=== PATIENT | female | born 1980 | race Caucasian/White ===

== ENCOUNTER 2022-05-06 11:14 | Outpatient (CLI) | payer OTHER, SELFPAY ==
[2022-05-06 11:47] LABS: Basophils Absolute Auto 0.1 K/mm3 (0.0-0.1); Basophils Percent Auto 0.7 % (0.2-1.2); Eosinophils Absolute Auto 0.4 K/mm3 (0-0.3); Eosinophils Percent Auto 4.2 % (0-4.4); Hematocrit 44.2 % (37.0-47.0); Hemoglobin 14.6 g/dL (12.0-15.0); Immature Granulocyte Absolute 0.03 K/mm3 (0.00-0.031); Immature Granulocyte Percent A 0.3 % (0-0.5); Lymphocytes Absolute Auto 2.58 K/mm3 (0.9-3.2); Lymphocytes Percent Auto 29.9 % (18.3-44.2); Mean Corpuscular Hemoglobin 30.3 pg (26-34); Mean Corpuscular Volume 91.7 fl (80-100); Mean Platelet Volume 9.9 fl (7.4-10.4); Monocytes Absolute Auto 0.7 K/mm3 (0.1-0.6); Neutrophils Absolute Auto 4.9 K/mm3 (1.3-6.7); Neutrophils Percent Auto 56.9 % (45.5-73.1); Platelet Count Result 311 k/mm3 (150-375); Red Blood Count 4.82 M/mm3 (4.2-5.4); Red Cell Distribution Width 13.2 % (11.5-14.5); White Blood Count 8.6 K/mm3 (4.5-10.0)
[2022-05-06 11:58] LABS: Alanine Aminotransferase 23 U/L (6-35); Alkaline Phosphatase 72 U/L (38-126); Anion Gap 8 mmol/L (8-16); Aspartate Amino Transferase 24 U/L (14-36); Bilirubin,Total 0.4 mg/dL (0.2-1.3); Blood Urea Nitrogen 10 mg/dL (7-17); Calcium 8.8 mg/dL (8.4-10.2); Carbon Dioxide 26 mmol/L (22-30); Chloride 104 mmol/L (98-107); Cholesterol 237 mg/dL (0-200); Estimated Glomerular Filt Rate > 60; Glucose 94 mg/dL (65-110); HDL Direct 36 mg/dL; Hemoglobin A1C 5.8 % (<5.7); Potassium 3.8 mmol/L (3.4-5.0); Sodium 138 mmol/L (137-145); Triglycerides 189 mg/dL (<150)
[2022-05-06 12:09] LABS: LDL Cholesterol Direct 142 mg/dL
[2022-05-06 12:15] LABS: Erythrocyte Sedimentation Rate 14 mm/hr (0-20)
[2022-05-06 12:52] LABS: Rheumatoid Factor < 8.6 IU/ML (<12)
[2022-05-11 22:33] LABS: Anti Cyclic Citrullinated Pept <16 Units (<20)
== END 2022-05-06 11:15 | disposition home or self-care (01) ==
LOC: ANHLAB 11:16
PROVIDERS: PCP Family Medicine; Visit Provider Nurse Practitioner Gerontology
DX: Z00.00 Encounter for general adult medical examination without abnormal findings (principal); Z51.81 Encounter for therapeutic drug level monitoring; Z79.899 Other long term (current) drug therapy
CPT/HCPCS: 36415; 80053; 80061; 83036; 84443; 85025; 85652; 86038; 86039; 86200; 86430

== ENCOUNTER 2022-05-15 13:02 | Outpatient (CLI) | payer OTHER, SELFPAY ==
--- NOTE | ~2022-05-15 | MMUS_ITS ---
EXAMINATION: MM diagnostic cuba BI w adam, US axilla LT HISTORY: Right breast pain TECHNIQUE: Additional 3-D tomosynthesis images of the breasts were performed and synthetic 2-D images were generated. CAD analysis was submitted and interpreted. High resolution left axillary ultrasound was performed. COMPARISON: No prior studies for comparison. BREAST PARENCHYMAL COMPOSITION: Breast composed of scattered areas of fibroglandular density FINDINGS: MAMMOGRAPHIC FINDINGS: There are no suspicious masses, calcifications or architectural distortion in either breast to sugges t malignancy. There is bilateral symmetric axillary lymph nodes. ULTRASOUND: Limited left axillary ultrasound: There are normal lymph nodes of the left axilla which retain their normal fatty hilum. Largest lymph node measures 2.1 cm. No suspicious masses to suggest malignancy. IMPRESSION: 1. No evidence for malignancy in either breast. 2. Routine yearly screening mammogram and regular clinical breast examination are recommended. BI-RADS Category 1: Negative Reviewed, dictated and finalized at location A. IMPRESSION: 1. No evidence for malignancy in either breast. 2. Routine yearly screening mammogram and regular clinical breast examination a re recommended. BI-RADS Category 1: Negative
== END 2022-05-15 13:03 | disposition home or self-care (01) ==
LOC: ANHIMG 13:03
PROVIDERS: PCP Family Medicine; Visit Provider Nurse Practitioner Gerontology
DX: N64.4 Mastodynia (principal)
CPT/HCPCS: 76882; 77062; 77066; G0279

== ENCOUNTER 2023-01-20 16:41 | Outpatient (CLI) | payer OTHER, SELFPAY ==
[2023-01-20 17:15] LABS: Basophils Absolute Auto 0.1 K/mm3 (0.0-0.1); Basophils Percent Auto 0.7 % (0.2-1.2); Eosinophils Absolute Auto 0.2 K/mm3 (0-0.3); Eosinophils Percent Auto 1.9 % (0-4.4); Hematocrit 43.4 % (37.0-47.0); Hemoglobin 14.7 g/dL (12.0-15.0); Immature Granulocyte Absolute 0.03 K/mm3 (0.00-0.031); Immature Granulocyte Percent A 0.4 % (0-0.5); Lymphocytes Absolute Auto 3.36 K/mm3 (0.9-3.2); Lymphocytes Percent Auto 41.8 % (18.3-44.2); Mean Corpuscular HGB Conc 33.9 g/dl (32-36); Mean Corpuscular Hemoglobin 30.9 pg (26-34); Mean Corpuscular Volume 91.2 fl (80-100); Monocytes Absolute Auto 0.6 K/mm3 (0.1-0.6); Monocytes Percent Auto 7.6 % (2.6-8.5); Neutrophils Absolute Auto 3.8 K/mm3 (1.3-6.7); Neutrophils Percent Auto 47.6 % (45.5-73.1); Platelet Count Result 362 k/mm3 (150-375); Red Blood Count 4.76 M/mm3 (4.2-5.4); Red Cell Distribution Width 12.7 % (11.5-14.5)
[2023-01-20 17:29] LABS: Alanine Aminotransferase 31 U/L (6-35); Albumin Level 4.3 g/dL (3.5-5.1); Alkaline Phosphatase 73 U/L (38-126); Anion Gap 10 mmol/L (8-16); Aspartate Amino Transferase 26 U/L (14-36); Bilirubin,Total 0.4 mg/dL (0.2-1.3); Blood Urea Nitrogen 13 mg/dL (7-17); Calcium 8.8 mg/dL (8.4-10.2); Carbon Dioxide 23 mmol/L (22-30); Chloride 103 mmol/L (98-107); Estimated Glomerular Filt Rate > 60; Glucose 104 mg/dL (65-110); Potassium 3.6 mmol/L (3.4-5.0); Sodium 136 mmol/L (137-145)
[2023-01-20 17:42] LABS: Hemoglobin A1C 5.8 % (<5.7)
== END 2023-01-20 16:42 | disposition home or self-care (01) ==
LOC: ANHLAB 16:42
PROVIDERS: PCP Family Medicine; Visit Provider Physician Assistant
DX: R73.09 Other abnormal glucose (principal); F17.200 Nicotine dependence, unspecified, uncomplicated; I10 Essential (primary) hypertension
CPT/HCPCS: 36415; 80053; 83036; 84443; 85025

== ENCOUNTER 2023-03-01 00:19 | Day surgery (SDC) | payer OTHER, SELFPAY ==
[2023-02-19 12:03] VITALS: BMI 36.2
--- NOTE | 2023-02-19 12:08 | PC.NURSE ---
Report to the Outpatient Waiting Room, entrance under the green pavilion located off [facility], at time 0800 on date 03/01/23. Planned Procedure Time: 0900. Time changes happen often and if your time is changed the preop area will call you the afternoon before. - You and your visitor will be asked to self-screen and do not enter if you have any COVID symptoms. - A mask is optional within the hospital at this time. Patients may have LIGHT BREAKFAST Take the following medications with a SIP of water the morning of surgery: PRESCRIBED DO NOT STOP ANY OF YOUR OTHER PRESCRIPTION MEDICATIONS PRIOR TO SURGERY EXCEPT THE FOLLOWING Medications to discontinue per physician: N/A Date to take last dose: N/A Please no make-up, nail italian, hairspray, perfume, deodorant, or body powder the day of surgery. No jewelry (including any body piercings) or valuables the day of surgery, leave them at home. Please take a shower or bath the night before, or the morning of, surgery with an antibacterial soap. Wear comfortable, loose fitting clothing. - Jewelry must be removed prior to entering the operating room. Rings and piercings that are not removed may be cut off. - The hospital will not accept responsibility for valuables. - Please leave all valuables, including medications, at home the day of surgery. YOU MAY DRIVE YOURSELF HOME AFTER SURGERY. Follow any additional instructions given to you from your surgeon. If you or anyone in your household have experienced Covid symptoms in the past week, please notify your surgeon or the nurse liaison at the phone number below for possible testing. Telephone instructions given to PT - JAMAR ALMANZA and asked if any additional questions and then verbalized understanding. Patient advised to call surgeon office or pre surgery nurse liaison [phone] if any additional questions.
[2023-03-01] VITALS (8 sets, daily range): BP systolic 119–146; BP diastolic 73–99; PULSE 60–62; RESP 14–62; TEMP 36.2; O2SAT 95–100
--- NOTE | 2023-03-01 07:18 | WPDHPUPDATE1 ---
History and Physical Update Update Date/Time: 03/01/23 07:18 History and Physical has been reviewed, including an updated exam of the patient. There are NO changes in the patient's condition. Risks, benefits, and alternatives have been discussed and questions answered. Patient agrees to proceed with procedure.
[2023-03-01] MEDS: LIDO 1%/EPINEPHRINE 1:100,000 50 ML VIAL 30 ML INFILTRATE (07:55)
[2023-03-01] MEDS: BUPivacaine HCL 0.5% 10 ML AMP 30 ML INFILTRATE (07:56)
--- NOTE | 2023-03-01 08:50 | PM.OP ---
Procedure Note - Brief Procedure Note - Brief Date of procedure: 03/01/23 Left upper back cyst x1, left upper back skin tag x1, right upper back skin tag x2, right thigh groin tag x1, left upper thigh fibro lipoma x1 Post-op diagnosis: Same Procedure performed: Excision of left upper back cyst with 2cm intermediate layered wound closure. Excision of left upper thigh fiber lipoma. Removal of left upper back skin tag x1. Removal of right groin skin tag x1. Removal of right upper back skin tag x2 Surgeon: Timmy Benjamin MD Anesthesia: local Implants: None Estimated blood loss (mL): 5 Drains: No Packing: No Pathology: Yes Complications: No immediate complications Condition: Stable Disposition: PACU
--- NOTE | 2023-03-01 18:28 | W.PM.PROC2 ---
Procedure Note - Detailed Date of Procedure 03/01/23 Pre-op Diagnosis left upper back cyst, left upper inner thigh subcutaneous mass, left upper back skin tags x1, right upper back skin tag x2, right groin skin tag x1, left neck skin tag x 1 Post-op Diagnosis Same Procedure Performed excision of left upper back sebaceous cyst x1, excision of left thigh fibro lipoma x1, excision of left upper back skin tag x1, excision of right upper back skin tag x2, and excision of right groin skin tag x1, left neck skin tag x 1, 2 cm intermediate layered wound closure on back cyst incision. Surgeon Timmy Benjamin MD Anesthesia Local Indications The patient presented with subcutaneous masses as well as multiple skin tags on her body as described above. They were irritating and presented for excision. Findings The left upper back sebaceous cyst measured 1x0.5x0 1cm. The left upper inner thigh fibro lipoma measured [id number]. the left upper back skin tag, right upper back skin tag x2, right groin skin tag and left neck skin tag all measured between 2 and 4mm in diameter. Description of Procedure After informed consent was obtained patient brought to the operating room where she was placed supine on operating table. The area the left no neck was then prepped and draped in usual sterile fashion. The area of the left upper inner thigh and the right groin region was also prepped in usual sterile fashion. Time-out was then performed correctly identifying the patient was procedure performed and verifying the site marking of all the intended areas of excision. I then started with excision of the left lateral neck skin tag. A local anesthetic mixture of 1% lidocaine mixed with 0.5% Marcaine was injected beneath the skin tag and then utilizing Metzenbaum scissors I excised the skin tag at the base. Skin temp was passed subcutaneous Dilaudid for examination. Electrocautery was used to fulgurate the base of the skin tag and achieve hemostasis. The area was then dressed with antibiotic ointment and a Band-Aid. I then approached excision of the skin tag on the right groin region. Again the same local anesthetic mixture was used to inject underneath the skin tag for local anesthetic effect. Again Metzenbaum scissors were used to excise the skin tag at the base and this skin tag was sent to pathology for examination as well. Base of the skin tag was treated with electrocautery for hemostasis and then it was dressed with antibiotic ointment and a Band-Aid. The subcutaneous mass in the upper inner left thigh was then excised. The same local anesthetic mixture was used to anesthetize the area. A scalp was then used to make an elliptical incision around the subcutaneous mass and incision was carried deeply down through the dermis of the skin to the subcutaneous tissue with the scalpel. Then I used electrocautery to completely excise off the fiber lipoma. It measured [id number]. This was sent to pathology for examination. Hemostasis was achieved with electrocautery. The incision was then closed utilizing interrupted 3-0 Vicryl sutures in the subcutaneous tissues and then the skin edges were approximated utilizing a running subcuticular 4 Monocryl suture. Incision was then cleaned and then skin glue was used for a final dressing. The patient was then turned into the prone position on operating table in in the upper back region was then prepped and draped in usual sterile fashion. I 1st started by excising out the size sebaceous cyst left upper back. Again local anesthetics mixture was used to inject underneath the cyst for local anesthetic effect. A scalpel then used to make an elliptical incision around the wall the cyst deeply down into the subcutaneous tissues. I then excised off the ellipse of tissue with the attached skin containing the cyst wall utilizing electrocautery. The cyst measured 1x 0.5 x 1 cm. it was sent to pathology fo
== END 2023-03-01 09:03 | disposition home or self-care (01) ==
PROVIDERS: PCP Physician Assistant; Visit Provider Surgery
PROC: (CPT 11401; principal; 2023-03-01 07:30)
DX: D23.4 Other benign neoplasm of skin of scalp and neck (principal); D23.5 Other benign neoplasm of skin of trunk; L72.12 Trichodermal cyst; L91.8 Other hypertrophic disorders of the skin; I10 Essential (primary) hypertension; Z87.891 Personal history of nicotine dependence
CPT/HCPCS: 11401; 12031; 11200; 27327; 88304; 88305; A9270

== ENCOUNTER 2025-03-26 17:04 | Outpatient (CLI) | payer OTHER, SELFPAY ==
--- OUTSIDE RECORDS SUMMARY | 2025-03-26 17:18 | XMS_ITS | Encounter Summary ---
Author Organization [facility] Address [address] [place] [address] Care Team Providers Care Cnc Service Engineer Name Role Phone Unavailable Primary Care Provider Unavailabl e Encounter Details Date Type Department Care Team (Late st Contact Info) Description 02/12/2025 Results Follow-Up [facility] Pulmonology - [facility] [address] [facility] [address] [place] [address] [place] [address] [facility] [address] [place] [address] [address] CHEST W CONTRAST Social History Tobacco Use Types Packs/Day Years Used Date Smoking Tobacco: Some Days Cigarettes Comments Unknown Sex and Gender Information Value Date Recorded Sex Assigned at Not on file Legal Sex Female 11:31 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 documented in this encounter Plan of Treatment Upcoming Encounters Date Type Department Care Team (Late st Contact Info) Description 03/25/2026 9:45 AM CDT Office Visit [facility] [place] [address] [place] [address] [place] [address] [facility] [address] [place] [address] documented as of this encounter Visit Diagnoses Not on filedocumented in this encounter
--- OUTSIDE RECORDS SUMMARY | 2025-03-26 17:18 | XMS_ITS | Clinical Summary ---
Author Organization [facility] Address [address] [place] [address] Care Team Providers Care Telephone Collector Name Role Phone Unavailable Primary Care Provider Unavailabl e Allergies Active Allergy Reactions Criticality Noted Date Comments Cat Hair Standardized Allergenic Extract Itching Low 10/05/2018 Itchy watery eyes. Methotrexate Nausea and Vomiting Low 10/05/2018 Threw up. Prednisone Swelling Low 06/11/2020 Medications losartan (COZAAR) 50 mg tablet Take 50 mg by mouth daily. 4 Active ALPRAZolam (XANAX) 0.25 mg tablet TAKE 1 TABLET ORALLY TWICE A DAY NEEDED FOR ANXIETY 4 Active venlafaxine (EFFEXOR XR) 75 mg Extended Release 24 hour capsule TAKE 1 CAPSULE BY MOUTH EVERY DAY IN THE MORNING 2 Active Trelegy Ellipta 200-62.5-25 mcg Disk with DeviceIndication s:Mild persistent asthma without complication Take 1 Puff by inhalation daily. 90 Each 3 5 Active albuterol-budeso nide (Airsupra) 90-80 mcg/actuation HFA Aerosol InhalerIndicatio ns:Mild persistent asthma without complication Take 2 Puffs by inhalation every 6 hours as needed (cough, wheeze). 10.7 Gram 5 5 Active albuterol-budeso nide (Airsupra) 90-80 mcg/actuation HFA Aerosol InhalerIndicatio ns:Mild persistent asthma without complication Take 2 Puffs by inhalation every 6 hours as needed (cough, wheeze). 10.7 Gram 5 4 025 Discontin ued(Reord er) Trelegy Ellipta 200-62.5-25 mcg Disk with Device inhale 1 puff daily 5 025 Discontin ued(Reord er) Active Problems Problem Noted Date Diagnosed Date Mild persistent asthma without complication 08/12 Chronic cough 09/06/2024 Electronic cigarette use 09/06/2024 LAD (lymphadenopathy), mediastinal 09/06/2024 Shortness of breath 05/23/2024 Ovarian cyst 12/28/2023 Chest pain 12/27/2023 Mediastinal mass 12/27/2023 Personal history of systemic lupus erythematosus (SLE) 12/27/2023 Left lower lobe pulmonary nodule 12/27/2023 Positive PAULINO (antinuclear antibody) 09/14/2022 Rash 10/06/2017 salvage determiner use of drug 08/31/2017 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 US R hand/wrist (01/17/18): Mild/moderate synovitis with effusions, synovial thickening and power doppler. Findings limited to the long view of the wrist with a grade 2 effusion and grade 1 power doppler as well as the 2nd and 3rd PIP joints with grade 1 effusions. Synovial thickening seen throughout the wrist, MCP, and PIP joints. In comparison to her most recent US of the right hand/wrist there is improvement in her inflammatory process. US right hand/wrist (09/23/22): Grade 1 power doppler in the wrist. Marked synovial thickening in the wrist, 2nd MCP, and 2nd and 3rd PIP joints. Moderate synovial thickening in the 3rd MCP and 5th MCP joints. No significant joint effusions or erosive changes on US examination. Past Tx: MTX (had intolerable side effects.) On leflunomide SSZ started 02/14/18. Increased to 1000 mg BID on 03/17/2018 Consider HCQ if doing poorly?? Encounters Date Type Department Care Team Description 03/08/2025 10:15 AM CDT Office Visit [facility] Pulmonology - [address] [place] [address] Pastora Mo, JERARDO Mild persistent asthma without complication (Primary Dx); Seasonal allergic rhinitis, unspecified trigger; Electronic cigarette use; Left lower lobe pulmonary nodule; LAD (lymphadenopathy), mediastinal 02/12/2025 9:50 AM CDT - 02/12/2025 11:59 PM CDT Hospital Encounter [facility] Services [address] [address] Wilfrido Glasgow, Discharge Disposition: Home or Self Care 02/12/2025 Results Follow-Up [facility] Pulmonology - [address] [place] [id number] Wilfrido Glasgow, CT CHEST W CONTRAST 01/23/2025 External Device Data STL ABSTRACTION Provider, Abstract 12/27/2024 External Device Data STL ABSTRACTION Provider, Abstract from Last 3 Months Family History Medical History Relation Name Comments Cancer Maternal Grandmother Maryana Diabetes Maternal Grandmother Maryana Relation Name Status Comments Maternal Grandmother Maryana Alive Social History Tobacco Use Types Packs/Day Years Used Date Smoking Tobacco: Some Days Cigarettes Tobacco Cessation:Ready to Q uit: No; Counseling Given: Yes Comments No Sex and Gender Information Value Date Recorded Sex Assigned at Not on file Legal 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 Gender Identity Not on file Sexual Orientation Not on file Last Filed Vital Signs Vital Sign Reading Time Taken Comments Blood Pressure 140/96 03/08/2025 9:59 AM CDT Pulse 71 03/08/2025 9:59 AM CDT Temperature 36.6 C (97.9 F) 03/08/2025 9:59 AM CDT Respiratory Rate - - Oxygen Saturation 99% 03/08/2025 9:59 AM CDT Inhaled Oxygen Concentration - - Weight 114.8 kg (253 lb) 03/08/2025 9:59 AM CDT Height 180.3 cm (5' 11) 03/08/2025 9:59 AM CDT Body Mass Index 35.29 03/08/2025 9:59 AM CDT Plan of Treatment Upcoming Encounters Date Type Department Care Team (Late st Contact Info) Description 03/25/2026 9:45 AM CDT Office Visit [facility] Pulmonology - [facility] [address] [place] [phone] Pastora Mo, JERARDO [address] [facility] [address] [place] [address] Health Maintenance Due Date Last Done Comments Pre-Diabetes and Diabetes Screening 1982 DTAP/TDAP/TD VACCINES (1 - Tdap) 2001 HEPATITIS B VACCINES (1 of 3 - 19+ 3-dose series) 2001 HPV/Cotest (21-29) 2003 CERVICAL CANCER SCREENING 02/19/2012 HPV/Cotest (30-65) 02/19/2012 PAP SMEAR 02/19/2012 BREAST CANCER SCREENING 2022 INFLUENZA VACCINE (#1) 2024 HPV VACCINES Aged Out No longer eligi ble based on patient's age to complete this topic Procedures Procedure Name Priority Date/Time Associated Diagnosis Comments CT CHEST W CONTRAST Routine 02/12/2025 1 0:49 AM CDT Left lower lobe pulmonary nodule from Last 3 Months Results * CT CHEST W CONTRAST (02/12/2025 10:49 AM CDT) Anatomical Region Laterality Modality Chest Computed Tomogra phy 02/12/2025 10:4 0 AM CDT Impressions 02/12/2025 1:42 PM CDT IMPRESSION: 1. 1.6 cm left lower lobe pulmonary nodule with enlarged subcarinal lymph nodes suspicious for primary malignancy with gia disease. Consider PET/CT for further evaluation. DICTATION LOCATION: Location [address] [place] [address] 02/12/2025 1:42 PM CDT EXAMINATION: CT CHEST W CONTRAST DATE: 02/12/2025 10:49 AM HISTORY: Lung nodule, > 8mm; Left lower lobe pulmonary nodule TECHNIQUE: CT of the chest was performed following the uneventful administration of contrast (IOPAMIDOL 76 % INTRAVENOUS SOLUTION (MULTI-DOSE BULK PACK) Given:80 mL) according to standard protocol. The examination was performed with the adjustment of mA according to the patient size and/or the use of Iterative Reconstruction Technique. COMPARISON: No prior study is available for comparison at the time of this dictation. FINDINGS: The lungs are clear of focal consolidation. No pleural effusion is identified. There is no evidence of pneumothorax. 1.6 cm left lower lobe pulmonary nodule (series 4, image 72). The trachea is patent. The heart size is normal. Enlarged subcarinal lymph nodes measuring up to 2.4 cm short axis. The thyroid gland enhances homogenously. The aorta and main pulmonary artery are normal in caliber. Coronary artery calcifications are not present. Evaluation of the upper abdomen shows no acute upper abdominal finding. No suspicious bone lesion is seen. No acute fracture is identified. Procedure Note Allie Wheeler MD - 02/12/2025 EXAMINATION: CT CHEST W CONTRAST DATE: 02/12/2025 10:49 AM HISTORY: Lung nodule, > 8mm; Left lower lobe pulmonary nodule TECHNIQUE: CT of the chest was performed following the uneventful administration of contrast (IOPAMIDOL 76 % INTRAVENOUS SOLUTION (MULTI-DOSE BULK PACK) Given:80 mL) according to standard protocol. The examination was performed with the adjustment of mA according to the patient size and/or the use of Iterative Reconstruction Technique. COMPARISON: No prior study is available for comparison at the time of this dictation. FINDINGS: The lungs are clear of focal consolidation. No pleural effusion is identified. There is no evidence of pneumothorax. 1.6 cm left lower lobe pulmonary nodule (series 4, image 72). The trachea is patent. The heart size is normal. Enlarged subcarinal lymph nodes measuring up to 2.4 cm short axis. The thyroid gland enhances homogenously. The aorta and main pulmonary artery are normal in caliber. Coronary artery calcifications are not present. Evaluation of the upper abdomen shows no acute upper abdominal finding. No suspicious bone lesion is seen. No acute fracture is identified. IMPRESSION: 1. 1.6 cm left lower lobe pulmonary nodule with enlarged subcarinal lymph nodes suspicious for primary malignancy with gia disease. Consider PET/CT for further evaluation. DICTATION LOCATION: Location [address] [place] [address] [address] ORDERABLES Final Res ult from Last 3 Months Insurance [facility] OA PLUS
[2025-03-26 17:47] LABS: Basophils Absolute Auto 0.1 K/mm3 (0.0-0.1); Basophils Percent Auto 0.8 % (0.2-1.2); Eosinophils Absolute Auto 0.1 K/mm3 (0-0.3); Eosinophils Percent Auto 1.2 % (0-4.4); Hematocrit 45.8 % (37.0-47.0); Hemoglobin 14.9 g/dL (12.0-15.0); Immature Granulocyte Absolute 0.02 K/mm3 (0.00-0.031); Immature Granulocyte Percent A 0.2 % (0-0.5); Lymphocytes Absolute Auto 3.23 K/mm3 (0.9-3.2); Lymphocytes Percent Auto 31.8 % (18.3-44.2); Mean Corpuscular HGB Conc 32.5 g/dl (32-36); Mean Corpuscular Volume 89.1 fl (80-100); Mean Platelet Volume 9.4 fl (7.4-10.4); Monocytes Absolute Auto 0.7 K/mm3 (0.1-0.6); Platelet Count Result 422 k/mm3 (150-375); Red Blood Count 5.14 M/mm3 (4.2-5.4); Red Cell Distribution Width 13.2 % (11.5-14.5); White Blood Count 10.2 K/mm3 (4.5-10.0)
[2025-03-26 17:48] LABS: Add Urine Microscopic? NO; Appearance Urine Clear (Clear); Bilirubin Urine Negative (Negative); Blood Urine Negative (Negative); Color Urine Yellow (Yellow); Glucose Urine UA Negative (Negative); Ketones Urine Negative (Negative); Leukocyte Esterase Ur Negative LEU/UL (Negative); Nitrate Urine Negative (Negative); Protein Urine Negative (Negative); Urobilinogen Urine 0.2 mg/dL (<2.0)
[2025-03-26 18:01] LABS: Alanine Aminotransferase 25 U/L (6-35); Albumin Level 4.4 g/dL (3.5-5.1); Alkaline Phosphatase 70 U/L (38-126); Anion Gap 11 mmol/L (4-12); Aspartate Amino Transferase 28 U/L (14-36); Bilirubin,Total 0.4 mg/dL (0.2-1.3); Blood Urea Nitrogen 12 mg/dL (7-17); Calcium 9.3 mg/dL (8.4-10.2); Carbon Dioxide 25 mmol/L (22-30); Chloride 101 mmol/L (98-107); Estimated Glomerular Filt Rate > 60; Glucose 115 mg/dL (65-110); Potassium 3.8 mmol/L (3.4-5.0); Sodium 137 mmol/L (137-145); Total Protein 8.1 g/dL (6.3-8.2)
== END 2025-03-26 17:05 | disposition home or self-care (01) ==
PROVIDERS: PCP Family Medicine; Visit Provider Student in an Organized Health Care Education/Training Program
DX: M79.89 Other specified soft tissue disorders (principal); I10 Essential (primary) hypertension
CPT/HCPCS: 36415; 80053; 81003; 85025

== ENCOUNTER 2025-07-19 14:29 | Outpatient (CLI) | payer OTHER, SELFPAY ==
--- NOTE | ~2025-07-19 | MR_ITS ---
EXAMINATION: MR ankle RT wo con DATE: 07/19/2025 15:01 INDICATION: Achilles tendinitis TECHNIQUE: Magnetic resonance imaging (MRI) of the right ankle was performed without intravenous contrast. Sequences included sagittal, coronal, and axial proton-density weighted fast spin echo without and with fat saturation. COMPARISON: None. FINDINGS: Medial ankle ligaments: Deep and superficial deltoid ligaments as well as the spring ligament are normal. Lateral ankle ligaments: The anterior and posterior inferior tibiofibular ligaments are normal. The calcaneofibular and posterior talofibular ligaments are normal. There is mild thickening and increased signal the central aspect of the anterior talofibular ligament without significant surrounding edema consistent with mild scarring related to chronic sprain. Tendons: There is mild tendinosis of the distal 5 cm the Achilles tendon without tear. At the distal insertion there is mild peritendinitis, mild retrocalcaneal bursitis and marrow edema in the calcaneus underlying the calcaneal insertion. There appear to be tiny erosions along the superomedial insertion of the Achilles tendon. There is also a Garrett deformity at the posterior superior margin of the calcaneus and moderate-sized Achilles calcaneal spur along the distal insertion. Small amount of fluid consistent with mild tenosynovitis along the otherwise normal peroneus longus and brevis tendons. The tibialis anterior and extensor hallucis longus and extensor digitorum longus tendons are normal. The tibialis posterior, flexor digitorum longus and flexor hallucis longus tendons are normal. Plantar fascia: Small plantar calcaneal spur and mild thickening of the central component of the plantar aponeurosis at its calcaneal origin consistent with mild chronic enthesopathy. No concerning soft tissue or marrow edema to suggest acute plantar fasciitis. Bones/other: Bone alignment is normal. No fracture or pathologic marrow replacing process. Mild osteoarthritis at a few of the tarsal metatarsal joints. Fluid: Physiologic amount fluid in the joint spaces. IMPRESSION: 1. 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 Suggestion of possible tiny erosion along the calcaneus in addition to mechanical degenerative enthesitis would also include gout, psoriatic reactive arthritis and ankylosing spondylitis on the differential. Reviewed, dictated and finalized at location A. IMPRESSION: 1. 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 Suggestion of possible tiny erosion along the calcaneus in addition to mec hanical degenerative enthesitis would also include gout, psoriatic reactive art hritis and ankylosing spondylitis on the differential.
== END 2025-07-19 14:30 | disposition home or self-care (01) ==
LOC: MICIMG 14:30
PROVIDERS: PCP Family Medicine; Visit Provider Podiatrist Foot & Ankle Surgery
DX: M76.61 Achilles tendinitis, right leg (principal); M76.71 Peroneal tendinitis, right leg; M77.31 Calcaneal spur, right foot; I10 Essential (primary) hypertension; M71.571 Other bursitis, not elsewhere classified, right ankle and foot
CPT/HCPCS: 73721